=== PATIENT | female | born 1970 | race Caucasian/White ===

== ENCOUNTER → 2017-03-01 | Outpatient (CLI) | payer OTHER ==
[~2017-03-01] MED LIST: SYMIN160 INH
--- NOTE | 2017-03-01 08:47 | DIAGNOSTIC IMAGING REPORT ---
CT SCAN OF THE CHEST WITHOUT IV CONTRAST CLINICAL HISTORY: Pulmonary nodules. COMPARISON STUDY: Chest x-ray dated 12/02/2015. TECHNIQUE: CT scan of the thorax was performed from the thoracic inlet to the upper abdomen. Images are reviewed in the axial, sagittal, and coronal planes. IV contrast was not administered for this examination as per the referring clinician. A dose lowering technique was utilized adhering to the principles of ALARA. CT DOSE: 221.50 mGy.cm FINDINGS: Thyroid: Imaged portions of the thyroid gland are normal in size and attenuation. Thoracic aorta: The thoracic aorta is normal in caliber and demonstrates standard 3-vessel arch anatomy. Heart: The heart is normal in size and without pericardial effusion. Lungs and pleural spaces: There is mild apical scarring. No airspace consolidation or pleural effusion is seen. There is a 6 mm left lower lobe pulmonary nodule seen image 237. No additional pulmonary lesion is identified. The trachea and central airways are clear. Mediastinum: There is no mediastinal lymphadenopathy. Doretha: Not well assessed without IV contrast. Axillae: There is no axillary lymphadenopathy. Upper abdomen: Partially visualized upper abdominal viscera is within normal limits. Skeletal structures: No lytic or blastic bony lesions are seen. There is a 4 mm benign-appearing lucency in the right lateral 10th rib. IMPRESSION: 1. There is no airspace consolidation or pleural effusion. 2. There is a 6 mm left lower lobe pulmonary nodule. This is pathologically indeterminant and can be followed as per the Fleischner criteria. See below. 3. No additional pulmonary lesion is identified. Please refer to below summary of Fleischner criteria recommendations for follow-up of incidental CT nodules (Everette Olguin, Guidelines for management of small pulmonary nodules detected on CT scans: A statement from the Fleischner Society, Radiology 237: [phone].) SOLID NODULES Solitary nodule size: <6 mm * low risk patients: no follow-up needed * high risk patients: optional CT at 12 months Solitary nodule size: 6-8 mm * low risk patients: follow-up at 6-12 months, then consider further follow-up at 18-24 months * high risk patients: initial follow-up CT at 6-12 months and then at 18-24 months if no change Solitary nodule size: >8 mm * either low or high risk patients - consider follow-up CT at 3 months, and/or CT-PET, and/or biopsy Multiple nodules size: <6 mm * low risk patients: no routine follow-up * high risk patients: optional CT at 12 months Multiple nodules size: 6-8 mm * low risk patients: follow-up at 3-6 months, then consider further follow-up at 18-24 months * high risk patients: follow-up at 3-6 months, then at 18-24 months if no change Multiple nodules size: >8 mm * low risk patients: follow-up at 3-6 months, then consider further follow-up at 18-24 months * high risk patients: follow-up at 3-6 months, then at 18-24 months if no change Note: newly detected indeterminate nodule in persons 35 years of age or older. * low risk patients: minimal or absent history of smoking and/or other known risk factors * high risk patients: history of smoking or of other known risk factors (e.g. first degree relative with lung cancer, or exposure to asbestos, radon, uranium) * if a nodule up to 8 mm is partly solid or is ground glass further follow-up is required after 24 months to exclude possible slow growing adenocarcinoma (JEREMIAH) SUBSOLID NODULES Solitary pure ground-glass nodule * nodule size <6 mm - no CT follow-up required * nodule size >=6 mm - follow-up CT at 6-12 months, then every 2 years until 5 years Solitary part-solid nodule * nodule size <6 mm - no CT follow-up required * nodule size >=6 mm - follow-up CT at 3-6 months. If unchanged, and solid component remains <6 mm, then annual follow-up for 5 years Multiple subsolid nodules * nodule size <6 mm - follow-up CT at 3-6 months, consider further follow-up at 2 and 4 years if stable * nodule size >=6 mm - follow-up CT at 3-6 months, subsequent management based on the most suspicious nodule(s) Electronically signed by: Leonard Simmons M.D. 03/01/2017 8:45 AM Dictated Date/Time: 03/01/2017 8:16 AM
== END | disposition home or self-care (01) ==
LOC: C.CTS 08:04
PROVIDERS: ATTEND Physician Assistant
DX: R91.8 Other nonspecific abnormal finding of lung field (principal)

== ENCOUNTER 2022-04-15 10:07 | Observation (INO) ==
[2022-04-15] MEDS ORDERED: ASPIRIN CHEW 324 MG PO STA (10:17)
[2022-04-15] MEDS ORDERED: SODIUM CHLORIDE 0.9% 1000ML 1,000 ML IV STA (10:17)
[2022-04-15] MEDS ORDERED: NITROGLYCERIN SL 0.4 MG/TAB TAB SL PRN (10:17)
--- NOTE | 2022-04-15 10:56 | XRay Report ---
XR chest 1V portable HISTORY: 52 years-old Female Chest pain, nonspecific acute left-sided chest pain COMPARISON: Chest radiograph 12/02/2015 TECHNIQUE: AP view of the chest FINDINGS: Nipple shadows project over the lung bases. Cardiomediastinal and hilar silhouettes are within normal limits. No pneumothorax, pleural effusion, airspace consolidation or overt pulmonary edema. Bones of the chest appear grossly intact. IMPRESSION: No acute process. ACT 112: Negative or not required by law. The above report was generated using voice recognition software. It may contain grammatical, syntax o r spelling errors. Electronically signed by: Winston Mcgovern M.D. 04/15/2022 10:55 AM
[2022-04-15 11:02] LABS: Basophils # (auto) 0.08 K/uL (0-0.2); Basophils % (auto) 1.3 %; Eosinophils # (auto) 0.13 K/uL (0-0.50); Eosinophils % (auto) 2.1 %; Hematocrit (blood only) 39.5 % (37.0-47.0); Hemoglobin 13.4 g/dl (12.0-16.0); Immature Granulocytes # (auto) 0.02 K/uL (0.01-0.20); Immature Granulocytes % (auto) 0.3 %; Lymphocytes # (auto) 2.93 K/uL (1.2-3.4); Lymphocytes % (auto) 46.8 %; Mean Corpuscular Hemoglobin 31.2 pg (25.0-34.0); Mean Corpuscular Hgb Conc 33.9 g/dL (32.0-36.0); Mean Corpuscular Volume 92.1 fL (80.0-100.0); Mean Platelet Volume 10.5 fL (9.4-12.4); Monocytes # (auto) 0.32 K/uL (0.11-0.59); Monocytes % (auto) 5.1 %; Neutrophils # (auto) 2.78 K/uL (1.40-6.50); Neutrophils % (auto) 44.4 %; Platelet Count 251 K/uL (130-400); RDW Coefficient of Variation 11.9 % (11.5-14.5); Red Blood Count 4.29 M/uL (4.20-5.40); White Blood Count 6.26 K/ul (4.8-10.8)
[2022-04-15 11:30] LABS: BUN Creatinine Ratio 10.8 (10-20); Calcium 9.7 mg/dl (8.5-10.1); Creatinine Clr Calc Pharmacy 73.2 ml/min; Est GFR (African American) 80.8 ml/min; Est GFR (Non-African American) 69.7 ml/min; Potassium 3.5 mmol/L (3.5-5.1); Troponin I High Sensitivity 7.1 pg/ml (0-14)
[2022-04-15 11:42] LABS: INR 1.1 (0.9-1.1); Partial Thromboplastin Ratio 0.9; Partial Thromboplastin Time 24.8 Seconds (21.0-31.0); Prothrombin Time 11.4 Seconds (9.0-12.0)
--- NOTE | 2022-04-15 11:46 | Electrocardiogram Report ---
Test Reason : Blood Pressure : / mmHG Vent. Rate : 069 BPM Atrial Rate : 069 BPM P-R Int : 148 ms QRS Dur : 072 ms QT Int : 390 ms P-R-T Axes : 082 061 003 degrees QTc Int : 417 ms Normal sinus rhythm with sinus arrhythmia Septal infarct , age undetermined Abnormal ECG When compared with ECG of 02-DEC-2015 14:55, T wave inversion now evident in Inferior leads Nonspecific T wave abnormality now evident in Anterior leads Confirmed by Prince Dunne ([id number]) on 04/15/2022 11:46:15 AM Referred By: Provider Outside Confirmed By:Prince Dunne
--- NOTE | 2022-04-15 12:54 | Emergency Department Note ---
History of Present Illness General Chief Complaint: Chest Pain Stated Complaint: REF BY DOC, CHEST PAIN Time Seen by Provider: 04/15/22 10:17 History of Present Illness Provider Complaint: chest pain Onset (ago): day(s) 1 Duration: intermittent Onset: during rest Pain Location: left chest Pain Radiation: none Severity: mild Maximum Pain Intensity: 3 Current Pain Intensity: 2 Quality: + aching Relieved By: + nothing Exacerbated By: + other (Swallowing) Context: no recent illness, no recent surgery, no recent immobilization, no recent travel, no trauma/injury, no new medications or no history of DVT/PE Associated symptoms: no nausea, no vomiting, no diaphoresis, no dyspnea, no syncope, no palpitations, no fever or no cough Home Medications Medication Instructions Recorded Confirmed Type albuterol sulfate 90 mcg/actuation 1 puff inhalation DAILY 04/15/22 04/15/22 History aerosol inhaler clobetasol 0.05 % topical cream 1 applic topical DAILY 04/15/22 04/15/22 History eletriptan 40 mg tablet 40 mg PO DAILY PRN Migraine 04/15/22 04/15/22 History Headache montelukast 10 mg tablet 10 mg PO DAILY 04/15/22 04/15/22 History topiramate 50 mg tablet 75 mg PO HS 04/15/22 04/15/22 History Allergies Allergy/AdvReac Type Severity Reaction Status Date / Time No Known Allergies Allergy Unknown Verified 12/02/15 12:51 Past Med/Surg History Medical History HTN (hypertension) Migraine No pertinent family history Surgical History No pertinent past surgical history Social History Smoking Status: Never smoker Preferred Language: Sammarinese Feels Safe at Home: Yes Physical Exam Vital Signs Vital Signs - 24 hr 04/15/22 10:11 04/15/22 11:00 04/15/22 12:03 Temperature 36.7 C Temperature Source Temporal Artery Scan Pulse Rate 80 69 Pulse Rate [Right Finger] 59 L Pulse Rhythm [Right Finger] Regular Pulse Strength [Right Finger] Normal Respiratory Rate 14 18 Respiratory Effort / Characteristics Non-Labored Respiratory Depth Normal Respiratory Pattern Regular Blood Pressure 127/79 Blood Pressure [Right Arm] 106/61 Blood Pressure Mean 95 Blood Pressure Mean [Right Arm] 76 Blood Pressure Position [Right Arm] Lying Pulse Oximetry 99 100 Oxygen Delivery Method Room Air Room Air Sepsis New/Unexplained Change in Mental Status No Sepsis Action Taken by Nursing No Action Required Physical Exam GENERAL: She is oriented to person, place, and time. She appears well-developed and well-nourished. She does not appear distressed. HENT: Exam performed. -Head: Normocephalic and atraumatic. -Right Ear: External ear normal. No mastoid tenderness. -Left Ear: External ear normal. No mastoid tenderness. -Mouth/Throat: The oropharynx is clear and moist. No trismus in the jaw. No dental abscesses or uvula swelling. No oropharyngeal exudate or tonsillar abscesses. EYES: Conjunctivae and EOM are normal. Pupils are equal, round, and reactive to light. Right eye exhibits no discharge. Left eye exhibits no discharge. No scleral icterus. NECK: Normal range of motion. Neck supple. No JVD present. No spinous process tenderness present. No carotid bruit present. No rigidity. No tracheal deviation and normal range of motion present. No Brudzinski's sign and no Kernig's sign noted. CV: Normal rate, regular rhythm, normal heart sounds and intact distal pulses. There is no peripheral edema. Palpable radial pulses bue. PULM/CHEST: Effort normal and breath sounds normal. No respiratory distress. No stridor. She has no wheezes. She has no rales. -Chest Wall: She exhibits no tenderness. ABD: The abdomen is soft. Bowel sounds are normal. She has no distension. No ma ss is present. There is no tenderness. There is no rebound, no guarding, no Madera's sign and no tenderness at McBurney's point. Rovsig negative MUSC/SKEL: Normal range of motion. There is no peripheral edema, tenderness or deformity. LYMPH: No cervical adenopathy. NEURO: She is alert and oriented to person, place, and time. She has normal strength. No cranial nerve deficit or sensory deficit. Coordination and gait normal. GCS eye subscore is 4. GCS verbal subscore is 5. GCS motor subscore is 6. Cerebellar tests wnl. SKIN: Skin is warm and dry. She is not diaphoretic. PSYCH: She has a normal mood and affect. Behavior is normal. Judgment and thought content normal. Course Course 1017: The patient was evaluated in room C11. A complete history and physical exam was performed Cardiac monitoring: An order was placed for continuous cardiac monitoring. The monitor shows a rate of 70 with sinus rhythm interpreted by me 1200: Vital signs stable. Labs within normal limits with exception of low blood sugar. Patient was given crackers and her blood sugar normalized. Troponin is negative chest x-ray is negative however EKG does show new T wave inversions in leads II, III, aVF when external medical records from [facility] were reviewed the patient did not have such T wave inversions on her last EKG in 2019. Patient will be admitted to the [facility] team for chest pain rule out ACS. Administered Medications Discontinued Medications Aspirin (Aspirin Chew 324 Mg) 324 mg PO NOW STA Stop: 04/15/22 10:18 Last Admin: 04/15/22 10:30 Dose: 324 mg Documented By: MARYBETH Sodium Chloride (Nss 1000ml) 1,000 mls @ 999 mls/hr IV .Q1H1M STA Stop: 04/15/22 11:17 Last Infusion: 04/15/22 11:36 Dose: 0 mls/hr Documented By: Admin: 04/15/22 10:29 Dose: 999 mls/hr Documented By: MARYBETH Medical Decision Making Medical Records Attestation: I reviewed the patient's medical records. Medical records narrative: external medical records from [facility] were reviewed the patient did not have such T wave inversions on her last EKG in 2019. Laboratory Data Attestation: I reviewed the patient's lab results. 04/15/22 10:23 04/15/22 10:23 Labs: Lab Results 04/15/22 04/15/22 04/15/22 Range/Units 10:23 10:23 10:23 WBC 6.26 (4.8-10.8) K/ul RBC 4.29 (4.20-5.40) M/uL Hgb 13.4 (12.0-16.0) g/dl Hct 39.5 (37.0-47.0) % MCV 92.1 (80.0-100.0) fL MCH 31.2 (25.0-34.0) pg MCHC 33.9 (32.0-36.0) g/dL RDW Std Deviation 40.0 (36.4-46.3) fL RDW Coeff of Samuel 11.9 (11.5-14.5) % Plt Count 251 (130-400) K/uL MPV 10.5 (9.4-12.4) fL Immature Gran % (Auto) 0.3 % Neut % (Auto) 44.4 % Lymph % (Auto) 46.8 % Barry % (Auto) 5.1 % Eos % (Auto) 2.1 % Baso % (Auto) 1.3 % Neut # (Auto) 2.78 (1.40-6.50) K/uL Lymph # (Auto) 2.93 (1.2-3.4) K/uL Barry # (Auto) 0.32 (0.11-0.59) K/uL Eos # (Auto) 0.13 (0-0.50) K/uL Baso # (Auto) 0.08 (0-0.2) K/uL Immature Gran # (Auto) 0.02 (0.01-0.20) K/uL PT 11.4 (9.0-12.0) Seconds INR 1.1 (0.9-1.1) APTT 24.8 (21.0-31.0) Seconds PTT Ratio 0.9 Sodium 140 (136-145) mmol/L Potassium 3.5 (3.5-5.1) mmol/L Chloride 108 H (98-107) mmol/L Carbon Dioxide 26 (21-32) mmol/L Anion Gap 6 (3-11) BUN 10 (6-23) mg/dl Creatinine 0.93 (0.6-1.2) mg/dl Est Cr Clr Drug Dosing 73.2 ml/min Est GFR ( Amer) 80.8 ml/min Est GFR (Non-Af Amer) 69.7 ml/min BUN/Creatinine Ratio 10.8 (10-20) Glucose 51 L* (70-99(Fasting)) mg/dl POC Glucose (70-99) mg/dl Calcium 9.7 (8.5-10.1) mg/dl Troponin I High Sens 7.1 (0-14) pg/ml Lipase 18 (11-82) U/L 04/15/22 Range/Units 12:11 WBC (4.8-10.8) K/ul RBC (4.20-5.40) M/uL Hgb (12.0-16.0) g/dl Hct (37.0-47.0) % MCV (80.0-100.0) fL MCH (25.0-34.0) pg MCHC (32.0-36.0) g/dL RDW Std Deviation (36.4-46.3) fL RDW Coeff of Samuel (11.5-14.5) % Plt Count (130-400) K/uL MPV (9.4-12.4) fL Immature Gran % (Auto) % Neut % (Auto) % Lymph % (Auto) % Barry % (Auto) % Eos % (Auto) % Baso % (Auto) % Neut # (Auto) (1.40-6.50) K/uL Lymph # (Auto) (1.2-3.4) K/uL Barry # (Auto) (0.11-0.59) K/uL Eos # (Auto) (0-0.50) K/uL Baso # (Auto) (0-0.2) K/uL Immature Gran # (Auto) (0.01-0.20) K/uL PT (9.0-12.0) Seconds INR (0.9-1.1) APTT (21.0-31.0) Seconds PTT Ratio Sodium (136-145) mmol/L Potassium (3.5-5.1) mmol/L Chloride (98-107) mmol/L Carbon Dioxide (21-32) mmol/L Anion Gap (3-11) BUN (6-23) mg/dl Creatinine (0.6-1.2) mg/dl Est Cr Clr Drug Dosing ml/min Est GFR ( Amer) ml/min Est GFR (Non-Af Amer) ml/min BUN/Creatinine Ratio (10-20) Glucose (70-99(Fasting)) mg/dl POC Glucose 101 H (70-99) mg/dl Calcium (8.5-10.1) mg/dl Troponin I High Sens (0-14) pg/ml Lipase (11-82) U/L Imaging Data Chest x-ray: Attestation: I personally reviewed and interpreted this imaging study as follows: My impression: Chest x-ray negative. Airway clear. No pneumothorax. No consolidation. No cardiomegaly or cephalization.. No free air under the diaphragm. No fractures of the skeletal structures. Radiologist's impression: Chest X-Ray 04/15/22 10:17 XR chest 1V portable HISTORY: 52 years-old Female Chest pain, nonspecific acute left-sided chest pain COMPARISON: Chest radiograph 12/02/2015 TECHNIQUE: AP view of the chest FINDINGS: Nipple shadows project over the lung bases. Cardiomediastinal and hilar silhouettes are within normal limits. No pneumothorax, pleural effusion, airspace consolidation or overt pulmonary edema. Bones of the chest appear grossly intact. IMPRESSION: No acute process. ACT 112: Negative or not required by law. The above report was generated using voice recognition software. It may contain grammatical, syntax or spelling errors. Electronically signed by: Winston Mcgovern M.D. 04/15/2022 10:55 AM ECG Data Attestation: I personally reviewed and interpreted this ECG as follows: Indication: chest pain Rate (beats per minute): 69 Rhythm: normal sinus Findings: + T-wave inversion (Leads II, III and aVF); no ST depression, no ST elevation or no prolonged QT MDM Narrative Vital signs stable. Labs within normal limits with exception of low blood sugar. Patient was given crackers and her blood sugar normalized. Troponin is negative chest x-ray is negative however EKG does show new T wave inversions in leads II, III, aVF when external medical records from [facility] were reviewed the patient did not have such T wave inversions on her last EKG in 2019. Patient will be admitted to the [facility] hospitalist team for chest pain rule out ACS. Impression & Plan Chest pain Discharge Plan Visit Data Chief Complaint: Chest Pain Stated Complaint: REF BY DOC, CHEST PAIN ED Provider: Walt Ward Discharge Problem: Chest pain Patient Disposition: Being Evaluated by Hospitalist Forms Stand Alone Forms: My [employer] Prescriptions Prescriptions: No Action clobetasol 0.05 % cream 1 applic TOPICAL DAILY montelukast 10 mg tablet 10 mg PO DAILY albuterol sulfate 90 mcg/actuation HFA aerosol inhaler 1 puff INHALATION DAILY eletriptan 40 mg tablet 40 mg PO DAILY PRN (Reason: Migraine Headache) topiramate 50 mg tablet 75 mg PO HS Referrals Referrals: Argenis Humprhies, [Primary Care Provider] -
--- NOTE | 2022-04-15 15:05 | History & Physical Report ---
Date of Service April 15, 2022 Assessment & Plan (1) Chest pain in adult: (2) Acute electrocardiogram changes: (3) Migraine: (4) Asthma: Plan Chest Pain: -EKG: TWI on Lead III, V3 and potentially aVF (new changes) -initial trop is neg -VSS and overall normal exam -Due to significant FHx of Cardiac disease with EKG changes will trend trop -- admit to tele, Echo and cardiology consultation (Pt follows up with Dileep Guillory) -Cardiac stress test from 2019: normal -AM A1C and Lipid Migraine and Asthma: -continue Topamax and singulair daily with prn albuterol Diet: Heart healthy DVT PPx: Lovenox Code Status:FULL CODE Emergency Contact: - Db [phone] History of Present Illness Chief Complaint: CP Primary Care Provider: Argenis Humphries DO Pt is a 52 y/o F with hx of Migraine, Asthma, thyroid nodules, FHx of CAD came into the ER with L sided chest pain. Per pt chest pain started yesterday while she was eating. Initially only associated with eating and drinking but became more persistent and constant today. Denied any dysphagia, odynophagia, N/V. Denied any prior hx of OK or CVA. Denied any recent URI symptoms. Allergies Allergy/AdvReac Type Severity Reaction Status Date / Time No Known Allergies Allergy Unknown Verified 12/02/15 12:51 Home Medications Medication Instructions Recorded Confirmed Type albuterol sulfate 90 mcg/actuation 1 puff inhalation DAILY 04/15/22 04/15/22 History aerosol inhaler clobetasol 0.05 % topical cream 1 applic topical DAILY 04/15/22 04/15/22 History eletriptan 40 mg tablet 40 mg PO DAILY PRN Migraine 04/15/22 04/15/22 History Headache montelukast 10 mg tablet 10 mg PO DAILY 04/15/22 04/15/22 History topiramate 50 mg tablet 75 mg PO HS 04/15/22 04/15/22 History Past Med/Surg History Medical History (Updated 04/15/22 @ 15:03 by Emily Lyle MD) Asthma Family history of cardiac disorder Migraine Surgical History No pertinent past surgical history Family History Other Diabetes Heart disease Social History Smoking Status: Never smoker Preferred Language: Latvian Feels Safe at Home: Yes Review of Systems Review of Systems: At least 10 Review of systems were reviewed and all negative except as indicated in HPI Physical Exam Physical Exam: General:. NAD, well developed, well nourished, average body habitus HEENT:. Normocephalic and atraumatic, Normal Conjunctiva, EOMI, Sclera is non- icteric Lungs:. No signs of respiratory distress, CTA, no wheezing or crackles Heart:. Normal S1, S2, no murmur Abdominal:. ND, Soft, NT MSK:. No deformities of UE and LE, No leg edema Psych:. AAOx3, normal affect Results & Data Results & Data ([facility]) Vital Signs (Past 12 Hours) Vital Signs Temp Pulse Pulse Resp BP BP Pulse Ox 04/15/22 12:03 69 04/15/22 11:00 59 L 18 106/61 100 04/15/22 10:11 36.7 C 80 14 127/79 99 O2 Del Method 04/15/22 12:03 04/15/22 11:00 Room Air 04/15/22 10:11 Room Air Laboratory Results Short CBC 04/15/22 Range/Units 10:23 WBC 6.26 (4.8-10.8) K/ul Hgb 13.4 (12.0-16.0) g/dl Hct 39.5 (37.0-47.0) % Plt Count 251 (130-400) K/uL BMP 04/15/22 10:23 Sodium 140 Potassium 3.5 Chloride 108 H Carbon Dioxide 26 BUN 10 Creatinine 0.93 Glucose 51 L* Calcium 9.7 Diagnostic Findings Chest X-Ray 04/15/22 10:17 XR chest 1V portable HISTORY: 52 years-old Female Chest pain, nonspecific acute left-sided chest pain COMPARISON: Chest radiograph 12/02/2015 TECHNIQUE: AP view of the chest FINDINGS: Nipple shadows project over the lung bases. Cardiomediastinal and hilar silhouettes are within normal limits. No pneumothorax, pleural effusion, airspace consolidation or overt pulmonary edema. Bones of the chest appear grossly intact. IMPRESSION: No acute process. ACT 112: Negative or not required by law. The above report was generated using voice recognition software. It may contain grammatical, syntax or spelling errors. Electronically signed by: Winston Mcgovern M.D. 04/15/2022 10:55 AM Code Status & VTE Plan VTE Prophylaxis Plan VTE Prophylaxis will be ordered: Yes
[2022-04-15] MEDS ORDERED: ALBUTEROL HFA 8 GM INHALER INH PRN (16:28)
[2022-04-15] MEDS ORDERED: ENOXAPARIN INJ 40 MG/0.4 ML SYR SQ SCH (18:00)
[2022-04-15] MEDS: ACETAMINOPHEN 325 MG TAB PO PRN (18:16)
[2022-04-15] MEDS ORDERED: TOPIRAMATE 25 MG TAB PO SCH (21:00)
[2022-04-16 06:57] LABS: Basophils # (auto) 0.05 K/uL (0-0.2); Basophils % (auto) 0.8 %; Eosinophils # (auto) 0.12 K/uL (0-0.50); Hematocrit (blood only) 35.1 % (37.0-47.0); Hemoglobin 11.9 g/dl (12.0-16.0); Immature Granulocytes # (auto) 0.02 K/uL (0.01-0.20); Immature Granulocytes % (auto) 0.3 %; Lymphocytes # (auto) 2.74 K/uL (1.2-3.4); Lymphocytes % (auto) 44.9 %; Mean Corpuscular Hemoglobin 31.2 pg (25.0-34.0); Mean Corpuscular Hgb Conc 33.9 g/dL (32.0-36.0); Mean Corpuscular Volume 92.1 fL (80.0-100.0); Mean Platelet Volume 10.4 fL (9.4-12.4); Monocytes # (auto) 0.33 K/uL (0.11-0.59); Monocytes % (auto) 5.4 %; Neutrophils # (auto) 2.84 K/uL (1.40-6.50); Neutrophils % (auto) 46.6 %; Platelet Count 216 K/uL (130-400); RDW Coefficient of Variation 11.9 % (11.5-14.5); RDW Standard Deviation 40.4 fL (36.4-46.3); Red Blood Count 3.81 M/uL (4.20-5.40)
[2022-04-16 07:06] LABS: Albumin Globulin Ratio 1.7 (0.9-2); Albumin Level 4.2 gm/dl (3.4-5.0); Bilirubin,Total 0.3 mg/dl (0.2-1.0); Chol HDL Ratio 3.8 (0-5); Creatinine Clr Calc Pharmacy 84.9 ml/min; Est GFR (African American) 96.9 ml/min; Est GFR (Non-African American) 83.6 ml/min; Globulin 2.5 gm/dl (2.5-4.0); Potassium 3.9 mmol/L (3.5-5.1); Total Protein 6.7 gm/dl (6.0-8.3)
[2022-04-16] MEDS: ACETAMINOPHEN 325 MG TAB PO PRN (07:14)
[2022-04-16] MEDS ORDERED: MONTELUKAST SODIUM 10 MG TABLET PO SCH (09:00)
--- NOTE | 2022-04-16 09:02 | Hospitalist Progress Note ---
Date of Service April 16, 2022 Assessment & Plan (1) Chest pain in adult: (2) Acute electrocardiogram changes: (3) Migraine: (4) Asthma: Plan Chest Pain: Patient's chest pain is atypical EKG: TWI on Lead III, V3 and potentially aVF (new changes) Repeat EKG Outpatient stress report from 01/2019 and EKG from 12/2018 reviewed Trop trend is negative so far Will follow up Cardiology evaluation and TTE Patient has significant family cardiac history and may need stress testing. Will defer to [employer] on that HbA1c pending Migraine Continue Topamax Asthma Controlled Continue singulair daily with prn albuterol DVT PPx: Lovenox Code Status:FULL CODE Emergency Contact: - Db [phone] Admission and Anticipated Discharge Date Admission Date: April 15, 2022 Subjective Patient seen and examined Still reports constant chest pain, mild to moderate Not affected by exertion. Not referred Though she stated it started while she was eating, she stated food does not affect it Denied SOB, PUGA Reports mild cough today Denied h/o ulcers, melena, hematochezia, abd pain. Denied fever, chills, nausea, vomiting, diarrhea Denied dysuria, freq, urgency Reports headache Denied smoking or illicit drug use. Rarely drinks alcohol Reports father had heart surg in his 50s, brother and sister had heart issues and one got stents. Physical Exam Constitutional: + well hydrated; no acute distress Eyes: PERRL, conjunctivae normal, anicteric sclerae ENMT: external ear and nose normal, oropharynx normal Respiratory: normal respiratory effort, lungs clear to auscultation Cardiovascular: Rate/Rhythm: regular rate and regular rhythm S1 S2 Gastrointestinal (Abdomen): normal bowel sounds, soft, nontender, no hepatosplenomegaly Musculoskeletal: no cyanosis or clubbing, extremities motor strength 5/5 Neurologic: PERRL, EOMI, accommodation nl, no face palsy, no dysarthria Psychiatric: A+Ox3, euthymic affect Results & Data Results & Data ([facility]) Vital Signs (Past 12 Hours) Vital Signs Temp Pulse Pulse Resp BP Pulse Ox O2 Del Method 04/16/22 07:27 69 04/16/22 06:37 36.7 C 57 L 18 111/70 98 Room Air 04/16/22 03:33 37 C 50 L 18 102/59 L 96 Room Air 04/15/22 23:42 53 L 04/15/22 23:18 37.2 C 52 L 18 97/59 L 97 Room Air Laboratory Results Abnormal lab results 04/15/22 04/15/22 04/15/22 Range/Units 10:23 12:11 20:16 RBC (4.20-5.40) M/uL Hgb (12.0-16.0) g/dl Hct (37.0-47.0) % Chloride 108 H (98-107) mmol/L Glucose 51 L* (70-99(Fasting)) mg/dl POC Glucose 101 H 106 H (70-99) mg/dl 04/16/22 04/16/22 Range/Units 06:34 06:34 RBC 3.81 L (4.20-5.40) M/uL Hgb 11.9 L (12.0-16.0) g/dl Hct 35.1 L (37.0-47.0) % Chloride 111 H (98-107) mmol/L Glucose (70-99(Fasting)) mg/dl POC Glucose (70-99) mg/dl
--- NOTE | 2022-04-16 11:48 | Cardiology Consultation ---
Date of Consultation April 16, 2022 Assessment & Plan (1) Chest pain: (2) Asthma: (3) GERD (gastroesophageal reflux disease): Plan Given the fact that her chest discomfort occurred while swallowing would suggest a GI issue particularly esophageal Cardiac work-up is unremarkable No further cardiac test intervention necessary at this time Recommend treatment for GERD and would consider GI evaluation as well. Okay to DC to home from cardiac standpoint. No need for cardiac follow-up as an outpatient. History of Present Illness Reason for Consultation: Chest pain Requesting Physician: [facility] Attending Physician: Chanelle Mccauley MD History of Present Illness It was my pleasure to see Ms. Brody in cardiac consultation today April 16, 2022. She is a very pleasant 52-year-old woman who was previously seen in our cardiology practice with Dr. Humphries for noncardiac chest pain. She presents to [facility] on 04/15/2022 with complaints of chest pain. The patient states that the pains started last evening while she was eating. She states that she swallowed a bite of food and then suddenly developed significant left-sided chest pressure. She denied any associated symptoms. She denies any previous similar episodes. She also notes that she has not been able to belch since this occurred. Allergies Allergy/AdvReac Type Severity Reaction Status Date / Time No Known Allergies Allergy Unknown Verified 12/02/15 12:51 Home Medications Medication Instructions Recorded Confirmed Type albuterol sulfate 90 mcg/actuation 1 puff inhalation DAILY 04/15/22 04/15/22 History aerosol inhaler clobetasol 0.05 % topical cream 1 applic topical DAILY 04/15/22 04/15/22 History eletriptan 40 mg tablet 40 mg PO DAILY PRN Migraine 04/15/22 04/15/22 History Headache montelukast 10 mg tablet 10 mg PO DAILY 04/15/22 04/15/22 History topiramate 50 mg tablet 75 mg PO HS 04/15/22 04/15/22 History pantoprazole 40 mg tablet,delayed 40 mg PO DAILY #14 tabs 04/16/22 Rx release Patient History Medical History Asthma Family history of cardiac disorder Migraine Surgical History No pertinent past surgical history Family History Other Diabetes Heart disease Social History Smoking Status: Never smoker Hx Alcohol Use: No Hx Substance Use: No Preferred Language: Cypriot Communication Ability: Effective Bandmill Operator Required: No Current Living Situation: Spouse Current Living Situation Comment: 1 story home Other Information That Helps Us Care for You: No Feels Safe at Home: Yes Safety Concerns: Feels Safe At This Time Review of Systems Review of Systems: All systems reviewed & are unremarkable except as noted in HPI & below Physical Exam Physical Exam: Physical Exam: General: Awake, alert and oriented x 3. No acute distress. HEENT: Normocephalic, atraumatic. Pupils equal, round and reactive to light and accommodation. Extraocular muscles are intact. Anicteric sclera. Moist mucous membranes. Neck: No JVD. No bruit. Cardiovascular: Regular. No S-4. Normal S-1 and S-2. No S-3. No murmurs, rubs or gallops. Pulmonary: Clear to auscultation bilaterally. No rales, rhonchi, or wheezing. Abdomen: Bowel sounds x 4, soft. No rebound, guarding or tenderness. No organomegaly. Extremities: No clubbing, cyanosis or edema. +2 pedal pulses bilaterally. Skin: Warm and dry. Results & Data ([facility]) Vital Signs (Past 12 Hours) Vital Signs Temp Pulse Pulse Resp BP Pulse Ox O2 Del Method 04/16/22 11:11 36.9 C 68 18 93/59 L 98 Room Air 04/16/22 07:27 69 04/16/22 06:37 36.7 C 57 L 18 111/70 98 Room Air 04/16/22 03:33 37 C 50 L 18 102/59 L 96 Room Air (1) Chest pain Chest pain type: unspecified Qualified Code(s): R07.9 - Chest pain, unspecified
--- NOTE | 2022-04-16 15:26 | Discharge Summary ---
Discharge Summary Date of Service April 16, 2022 Notes For Next Care Provider Follow up atypical chest pain If persists, get GI referral for endoscopy Medication Changes From Visit Discharged on pantoprazole po Admission HPI Per Admitting Provider Pt is a 52 y/o F with hx of Migraine, Asthma, thyroid nodules, FHx of CAD came into the ER with L sided chest pain. Per pt chest pain started yesterday while she was eating. Initially only associated with eating and drinking but became more persistent and constant today. Denied any dysphagia, odynophagia, N/V. Denied any prior hx of MD or CVA. Denied any recent URI symptoms. Admission Exam Per Admitting Provider General:.NAD, well developed, well nourished, average body habitus HEENT:.Normocephalic and atraumatic, Normal Conjunctiva, EOMI, Sclera is non-icteric Lungs:.No signs of respiratory distress, CTA, no wheezing or crackles Heart:.Normal S1, S2, no murmur Abdominal:.ND, Soft, NT MSK:.No deformities of UE and LE, No leg edema Psych:.AAOx3, normal affect Principal Dx & Hospital Course #1 = Principal Diagnosis (1) Chest pain in adult: (2) Acute electrocardiogram changes: (3) Migraine: (4) Asthma: Plan Chest Pain: Patient's chest pain is atypical CXR did not show any acute abnormalities EKG: TWI on Lead III aVF Repeat EKG today show TWI resolved Outpatient stress report from 01/2019 and EKG from 12/2018 reviewed Trop trend was negative TTE was normal Card evaluation noted. Discussed with Structural Shop Helper. No cardiac stress test recommended Pain may be related to GI Denied hematochezia, melena, dysphagia, hematemesis Trial of PPI. Patient discharged on pantoprazole Advised to followup with PCP within the week. If pain persist with PPI, may get GI referral for Endoscopy HbA1c pending Migraine Continue Topamax Asthma Controlled Continue singulair daily with prn albuterol Discharge Exam Constitutional + well hydrated; no acute distress Eyes PERRL, conjunctivae normal, anicteric sclerae ENMT external ear and nose normal, oropharynx normal Respiratory normal respiratory effort, lungs clear to auscultation Cardiovascular Rate/Rhythm: regular rate and regular rhythm S1 S2 Gastrointestinal (Abdomen) normal bowel sounds, soft, nontender, no hepatosplenomegaly Musculoskeletal no cyanosis or clubbing, extremities motor strength 5/5 Neurologic PERRL, EOMI, accommodation nl, no face palsy, no dysarthria Psychiatric A+Ox3, euthymic affect Updated Medication List Medication Instructions Recorded Confirmed Type albuterol sulfate 90 mcg/actuation 1 puff inhalation DAILY 04/15/22 04/15/22 History aerosol inhaler clobetasol 0.05 % topical cream 1 applic topical DAILY 04/15/22 04/15/22 History eletriptan 40 mg tablet 40 mg PO DAILY PRN Migraine 04/15/22 04/15/22 History Headache montelukast 10 mg tablet 10 mg PO DAILY 04/15/22 04/15/22 History topiramate 50 mg tablet 75 mg PO HS 04/15/22 04/15/22 History pantoprazole 40 mg tablet,delayed 40 mg PO DAILY #14 tabs 04/16/22 Rx release Hospital Stay Data Consultations 04/15/22 12:01 ED Decision to Admit Stat 04/15/22 16:28 Consult Cardiology Routine Pending Results Patient Have Any Pending Studies at Discharge: No Discharge Instructions Given to Patient (Per Discharging Provider) Mrs Brody You came to the hospital with chest pain. You were evaluated and monitored. You are being discharged on trial of pantoprazole. Please ensure follow up with your Primary Doctor. If pain persists, you may need evaluation by Link Fabric Machine Operator for endoscopy. If chest pain worsens or you develop other symptoms such as shortness of breath. Please return to the ER It was a pleasure taking care of you. Total Time Total Time Spent Total Time Spent (In Minutes): 45 Total Time Includes: Examination of the Patient, Discharge Planning, Medication Reconciliation and Communication With Other Providers
[2022-04-17 08:02] LABS: Estimated Average Glucose 105 mg/dl; Hemoglobin A1C 5.3 % (4.5-5.6)
--- NOTE | 2022-04-17 09:21 | Electrocardiogram Report ---
Test Reason : Blood Pressure : / mmHG Vent. Rate : 057 BPM Atrial Rate : 057 BPM P-R Int : 140 ms QRS Dur : 078 ms QT Int : 448 ms P-R-T Axes : 062 059 038 degrees QTc Int : 436 ms Poor data quality, interpretation may be adversely affected Sinus bradycardia Low voltage QRS Borderline ECG When compared with ECG of 15-APR-2022 10:19, T wave inversion no longer evident in Inferior leads Nonspecific T wave abnormality no longer evident in Anterior leads Confirmed by Marco Murray ([id number]) on 04/17/2022 9:21:04 AM Referred By: Provider Outside Confirmed By:Ori Murray
== END 2022-04-16 16:57 | disposition home or self-care (01) ==
LOC: ED 10:07 → INTOOBSV 13:01 → EDINP 13:01 → SUATTDRO 13:01 → 2N 16:29